=== PATIENT | female | born 1960 | race Caucasian/White ===

== ENCOUNTER → 2017-04-10 | Outpatient (CLI) | payer BC ==
[~2017-04-10] MED LIST: BLAC40CA2 PO; CALCTAB5 PO; MULT-506 PO; OMEG10007 PO
== END | disposition home or self-care (01) ==
LOC: C.LABPVFM 08:19
PROVIDERS: ATTEND Nurse Practitioner
DX: N39.0 Urinary tract infection, site not specified (principal)

== ENCOUNTER 2024-05-07 04:16 | Observation (INO) ==
--- NOTE | 2024-05-07 04:34 | Emergency Department Note ---
Impression & Plan Kidney stone ADMIT ED Provider Note HPI: History obtained from patient. The patient is a 63-year-old female who presents the emergency department the chief complaint of right flank pain. Patient states that she awoke with this pain at approximately 1 AM (3.5 hours prior to arrival). Patient states she has had multiple episodes of vomiting. Patient states that this pain does feel similar to pain that she has had in the past associated with kidney stones. On arrival here to the ED the patient is hypertensive but otherwise hemodynamically stable, she is saturating well on room air on arrival. Patient denies any chest pain or shortness of breath. ROS: - Per HPI Differential Diagnosis: Kidney stone, pyelonephritis, urinary tract infection, acute cholecystitis, choledocholithiasis, small bowel obstruction, viral gastroenteritis, amongst other potential pathologies. *Outpatient medications and allergy history reviewed. PE: General: Alert HEENT: Normocephalic, trachea midline Eyes: Extraocular eye movement is intact, no scleral erythema Pulmonary: Clear to auscultation bilaterally, no wheezing Cardio: Regular rate and rhythm GI: Abdomen is soft to palpation, there is no guarding or rigidity : No suprapubic tenderness, there is moderate right flank tenderness to palpation MSK: No evidence of trauma or malformation of the extremities, no edema Skin: No evidence of rash Neuro: Alert, no focal deficits Psychiatric: Cooperative INDEPENDENT INTERPRETATIONS: cafeteria monitor: (As interpreted by myself): - An order was placed for continuous cardiac monitoring - Patient was noted to be in sinus rhythm with rate of 85 Interventions provided in ED: -IV morphine, IV Zofran, IV Toradol, IV fluid bolus, IV ciprofloxacin Medical Decision Making: IV was established and lab work obtained, patient was placed on court recording monitor. Lab work shows no leukocytosis, hemoglobin is normal, platelet count is normal, CMP does not show any evidence of any critical findings. No evidence of acute kidney injury. Urinalysis is concerning for possible infection, 2+ leukocyte Estrace with significant pyuria and 2+ bacteria. Will send for culture. Given the patient's antibiotic allergy profile she will be treated with IV ciprofloxacin. CT imaging of the abdomen pelvis was obtained that shows an obstructing kidney stone at the right UPJ measuring 9 mm in diameter. Soft tissue mass also possible on CT imaging of which the patient has a known history. I discussed these findings with the patient, urology was consulted and the patient was evaluated at the bedside by Keven Edwards PA-C. At this time admission is recommended and the patient will be evaluated by the urology service for possible stent placement. [facility] [place] was consulted for admission and the patient was placed for admission in stable condition. Prior to admission patient states that her pain is improved following the above interventions. Consultants/Discussions held with other healthcare providers: -Urology service, Keven Edwards PA-C/Dr. Chairez -Hospitalist, Disposition discussion held by myself with: -Patient and patient's spouse at the bedside Diagnosis: 1. Kidney stone, acute, right-sided, with hydronephrosis 2. Urinary tract infection, acute Disposition: Admission Mack Thompson DO Emergency Medicine Past Med/Surg History Problem List (Updated 05/07/24 @ 06:50 by Mack Thompson DO) Kidney stone (Acute) Right shoulder strain Plantar fasciitis IPMN (intraductal papillary mucinous neoplasm) Obesity (BMI 30.0-34.9) Renal lesion Calculus of ureterovesical junction (UVJ) Obesity Right foot pain Pre-diabetes Hypertension Bilateral nephrolithiasis Medical History Nausea and vomiting after administration of anesthetic agent Calculus of kidney and ureter Herniated disc LUMBAR AREA -- REMAINS WITH OCAS BACK PAIN GERD (gastroesophageal reflux disease) Hypertension NO MEDS AND BEING MONITORED Kidney stones HX OF STONES Gallbladder polyp Surgical History History of lithotripsy Laser Litho History of colonoscopy Ganglion cyst RT FOOT REMOVED History of carpal tunnel release LEFT/RT History of dilatation and curettage History of cystoscopy STONE REMOVAL History of tooth extraction Family History Mother Diabetes Nephrolithiasis Son Nephrolithiasis Other Gallbladder disease Social History Smoking Status: Never smoker Second Hand Exposure: No; Do You Dip or Chew Tobacco: No; Hx Alcohol Use: No Hx Substance Use: No Preferred Language: Malay Communication Ability: Effective Cone Machine Operator Required: No Beliefs That Will Affect Care: None marital status: Current Living Situation: Spouse current occupational status: employed current occupation: food service lead How many Children do You have: 1 Feels Safe at Home: Yes Childhood Exposure to Second-Hand Smoke: Yes Diet: regular caffeine: Yes Dental Care, Regularly: No Physical Activity Frequency: Daily Seatbelt Use: always Sunscreen Use: No Assistive Devices: Contacts and Glasses Allergies Allergies Allergy/AdvReac Type Severity Reaction Status Date / Time amoxicillin Allergy Intermediate HIVES AND Verified 04/14/24 15:25 FACIAL SWELLING topiramate [From Topamax] AdvReac Verified 04/14/24 15:25 metformin AdvReac Dizziness Uncoded 04/14/24 15:25 Home Meds Home Medications Medication Instructions Recorded Confirmed calcium carbonate (Calcium 500) 500 mg PO QAM 11/05/18 04/14/24 multivitamin 1 tab PO QAM 11/05/18 04/14/24 omega 3-ovq-cha-fish oil 1,000 mg 1 cap PO QAM 11/05/18 04/14/24 (120 mg-180 mg) capsule (Fish Oil) Previous Rx's Medication Instructions Recorded omeprazole 20 mg tablet,delayed 20 mg PO QAM #90 tabs 09/24/23 release amlodipine 10 mg tablet 10 mg PO DAILY #90 tabs 01/02/24 losartan 50 mg tablet 50 mg PO DAILY #90 tabs 01/02/24 Results & Data (ED) Vital Signs Vital Signs - 24 hr 05/07/24 04:21 05/07/24 05:58 05/07/24 06:05 Temperature 36.9 C Temperature Source Temporal Artery Scan Pulse Rate 90 80 Pulse Rate [Apical] 78 Pulse Rhythm Regular Pulse Rhythm [Apical] Regular Pulse Strength [Apical] Normal Respiratory Rate 20 18 14 Respiratory Effort / Characteristics Non-Labored Spontaneous Respiratory Depth Normal Respiratory Pattern Regular Blood Pressure 188/88 H Blood Pressure [Right Arm] 150/85 H Blood Pressure Mean 121 Blood Pressure Mean [Right Arm] 106 Pulse Oximetry 94 98 99 Oxygen Delivery Method Room Air Room Air Room Air Sepsis Recent Fever Within 48 Hours No Sepsis New/Unexplained Change in Mental Status No Sepsis Action Taken by Nursing No Action Required Laboratory Data 05/07/24 04:35 05/07/24 04:35 Lab Results 05/07/24 Range/Units 04:35 WBC 9.82 (4.8-10.8) K/ul RBC 5.21 (4.20-5.40) M/uL Hgb 15.6 (12.0-16.0) g/dl Hct 46.4 (37.0-47.0) % MCV 89.1 (80.0-100.0) fL MCH 29.9 (25.0-34.0) pg MCHC 33.6 (32.0-36.0) g/dL RDW Std Deviation 39.5 (36.4-46.3) fL RDW Coeff of Ben 12.1 (11.5-14.5) % Plt Count 329 (130-400) K/uL MPV 9.3 L (9.4-12.4) fL Immature Gran % (Auto) 1.3 % Neut % (Auto) 75.8 % Lymph % (Auto) 17.7 % [place] % (Auto) 4.3 % Eos % (Auto) 0.4 % Baso % (Auto) 0.5 % Neut # (Auto) 7.44 H (1.40-6.50) K/uL Lymph # (Auto) 1.74 (1.20-3.40) K/uL [place] # (Auto) 0.42 (0.11-0.59) K/uL Eos # (Auto) 0.04 (0.00-0.50) K/uL Baso # (Auto) 0.05 (0.00-0.20) K/uL Immature Gran # (Auto) 0.13 (0.01-0.20) K/uL Sodium 137 (136-145) mmol/L Potassium 4.0 (3.5-5.1) mmol/L Chloride 104 (98-107) mmol/L Carbon Dioxide 24 (21-32) mmol/L Anion Gap 9 (3-11) BUN 14 (6-23) mg/dl Creatinine 0.91 (0.6-1.2) mg/dl Est Cr Clr Drug Dosing 63.2 ml/min Est GFR ( Amer) 77.8 ml/min Est GFR (Non-Af Amer) 67.1 ml/min BUN/Creatinine Ratio 15.4 (10-20) Glucose 152 H (70-99(Fasting)) mg/dl Calcium 10.4 H (8.6-10.3) mg/dl Total Bilirubin 0.5 (0.2-1.0) mg/dl AST 22 (13-39) U/L ALT 34 (7-52) U/L Alkaline Phosphatase 138 H (34-104) U/L Total Protein 7.9 (6.0-8.3) gm/dl Albumin 4.8 (3.4-5.0) gm/dl Globulin 3.1 (2.5-4.0) gm/dl Albumin/Globulin Ratio 1.5 (0.9-2) Lipase 28 (11-82) U/L Urine Color Yellow Urine Appearance Cloudy A (Clear) Urine pH 5.5 (4.5-7.5) Ur Specific [place] 1.022 (1.000-1.030) Urine Protein 2+ H (Negative) Urine Glucose (UA) Negative (Negative) Urine Ketones Negative (Negative) Urine Blood 2+ H (Negative) Urine Nitrite Negative (Negative) Urine Bilirubin Negative (Negative) Urine Urobilinogen Negative (Negative) Ur Leukocyte Esterase 2+ H (Negative) Urine WBC (Auto) >50 H (0-5) /hpf Urine RBC (Auto) >20 H (0-2) /hpf U Hyaline Cast (Auto) 0-2 (0-2) /lpf U Epithel Cells (Auto) 3-5 H (0-2) /hpf Urine Bacteria (Auto) 2+ H (None Seen) Administered Medications Discontinued Medications Sodium Chloride (Nss) 1,000 mls @ 999 mls/hr IV .Q1H1M ONE Stop: 05/07/24 05:32 Last Infusion: 05/07/24 05:42 Dose: Infused Documented By: [facility] Admin: 05/07/24 04:39 Dose: 999 mls/hr Documented By: [facility] Ketorolac Tromethamine (Ketorolac Tromethamine 15 Mg/Ml Vial) 15 mg IV NOW ONE Stop: 05/07/24 05:12 Last Admin: 05/07/24 05:27 Dose: 15 mg Documented By: [facility] Morphine Sulfate (Morphine Sulfate 4 Mg/Ml 1 Ml Carp\Vial) 4 mg IV NOW STA Stop: 05/07/24 04:33 Last Admin: 05/07/24 04:39 Dose: 4 mg Documented By: [facility] Ondansetron HCl (Ondansetron Inj 2 Mg/Ml 2 Ml Vial) 4 mg IV NOW STA Stop: 05/07/24 04:33 Last Admin: 05/07/24 04:39 Dose: 4 mg Documented By: [facility] Imaging Data Radiologist's Impression: Abdomen/Pelvis CT 05/07/24 04:32 Exam(s): CT ABDOMEN + PELVIS Without Contrast EXAM: CT Abdomen and Pelvis Without Intravenous Contrast CLINICAL HISTORY: Reason for exam: R flank pain. TECHNIQUE: Axial computed tomography images of the abdomen and pelvis without intravenous contrast. Automated exposure control was utilized for the study. A dose lowering technique was utilized adhering to the principles of ALARA. COMPARISON: No relevant prior studies available. FINDINGS: Lung bases: No consolidation. ABDOMEN: Exam is limited due to lack of contrast material. Liver: The liver is enlarged and of diffuse decreased attenuation. Gallbladder and bile ducts: No calcified stones. No ductal dilation. Pancreas: The visualized portions of the pancreas, on this noncontrast study, are grossly unremarkable. Spleen: No splenomegaly. Adrenals: No mass. Kidneys and ureters: There are small bilateral renal calcifications. There is moderate to right hydronephrosis due to a 9 mm calculus at the UPJ. There is a 2 cm rounded lucency within the right kidney. There is a 1.3 cm soft tissue nodular density in the right kidney.. Stomach and bowel: There is some air and fluid within the stomach. There is air and stool noted in the colon. There are diverticula present on the colon. No significant inflammatory changes are noted.. PELVIS: Appendix: Unremarkable CT scan appearance noted the appendix.. Bladder: No calculi are noted within the bladder.. Reproductive: Unremarkable as visualized. ABDOMEN and PELVIS: Intraperitoneal space: No free air. No significant fluid collection. Bones/joints: There are some degenerative changes in the spine.. Soft tissues: Unremarkable. Vasculature: No abdominal aortic aneurysm. Lymph nodes: No enlarged lymph nodes. IMPRESSION: There are small bilateral renal calcifications. There is moderate to right hydronephrosis due to a 9 mm calculus at the UPJ. There is a 2 cm rounded lucency within the right kidney. This may represent a cyst.. There is a 1.3 cm soft tissue nodular density in the right kidney.. This may represent a complex cyst. Cannot exclude a soft tissue mass on this noncontrast study. The liver is enlarged and of diffuse decreased attenuation which may be due to fatty infiltration. Electronically signed by: Yonas Wild MD 05/07/24 06:33 AM Discharge Plan Visit Data Chief Complaint: Kidney Stone Stated Complaint: THINKS SHE IS PASSING A KIDNEY STONE ED Provider: Mack Thompson Discharge Problem: Kidney stone Forms Stand Alone Forms: My [facility] Prescriptions Prescriptions: No Action omeprazole 20 mg tablet,delayed release (DR/EC) 20 mg PO QAM Qty: 90 3RF amlodipine 10 mg tablet 10 mg PO DAILY Qty: 90 3RF losartan 50 mg tablet 50 mg PO DAILY Qty: 90 3RF multivitamin Tablet 1 tab PO QAM calcium carbonate [Calcium 500] 500 mg calcium (1,250 mg) Tablet 500 mg PO QAM omega 6-qiy-sxp-fish oil [Fish Oil] 1,000 mg (120 mg-180 mg) Capsule 1 cap PO QAM Referrals Referrals: Ana Brock CRNP [Primary Care Provider] -
[2024-05-07] MEDS: SODIUM CHLORIDE 0.9% 1,000 ML IV ONE (04:39)
[2024-05-07] MEDS: ONDANSETRON INJ 2 MG/ML 2 ML VIAL IV STA (04:39)
[2024-05-07] MEDS: MoRPHine SULFATE 4 MG/ML 1 ML CARP\\VIAL IV STA (04:39)
[2024-05-07 04:51] LABS: Basophils # (auto) 0.05 K/uL (0.00-0.20); Basophils % (auto) 0.5 %; Eosinophils # (auto) 0.04 K/uL (0.00-0.50); Eosinophils % (auto) 0.4 %; Hematocrit (blood only) 46.4 % (37.0-47.0); Hemoglobin 15.6 g/dl (12.0-16.0); Immature Granulocytes # (auto) 0.13 K/uL (0.01-0.20); Immature Granulocytes % (auto) 1.3 %; Lymphocytes # (auto) 1.74 K/uL (1.20-3.40); Lymphocytes % (auto) 17.7 %; Mean Corpuscular Hemoglobin 29.9 pg (25.0-34.0); Mean Corpuscular Hgb Conc 33.6 g/dL (32.0-36.0); Mean Corpuscular Volume 89.1 fL (80.0-100.0); Mean Platelet Volume 9.3 fL (9.4-12.4); Monocytes # (auto) 0.42 K/uL (0.11-0.59); Monocytes % (auto) 4.3 %; Neutrophils # (auto) 7.44 K/uL (1.40-6.50); Neutrophils % (auto) 75.8 %; Platelet Count 329 K/uL (130-400); RDW Coefficient of Variation 12.1 % (11.5-14.5); RDW Standard Deviation 39.5 fL (36.4-46.3); Red Blood Count 5.21 M/uL (4.20-5.40); White Blood Count 9.82 K/ul (4.8-10.8)
[2024-05-07 04:57] LABS: Appearance Urine Cloudy (Clear); Bacteria Urine Automated 2+ (None Seen); Bilirubin Urine Negative (Negative); Blood Urine 2+ (Negative); Cast Urine Automated 0-2 /lpf (0-2); Color Urine Yellow; Glucose Urine UA Negative (Negative); Ketones Urine Negative (Negative); Leukocyte Esterase Urine 2+ (Negative); Nitrite Urine Negative (Negative); Protein Urine 2+ (Negative); RBC Urine Automated >20 /hpf (0-2); Specific Gravity Urine 1.022 (1.000-1.030); Urobilinogen Urine Negative (Negative); WBC Urine Automated >50 /hpf (0-5); pH Urine 5.5 (4.5-7.5)
[2024-05-07 05:04] LABS: Albumin Globulin Ratio 1.5 (0.9-2); Albumin Level 4.8 gm/dl (3.4-5.0); BUN Creatinine Ratio 15.4 (10-20); Bilirubin,Total 0.5 mg/dl (0.2-1.0); Calcium 10.4 mg/dl (8.6-10.3); Creatinine Clr Calc Pharmacy 63.2 ml/min; Est GFR (African American) 77.8 ml/min; Est GFR (Non-African American) 67.1 ml/min; Globulin 3.1 gm/dl (2.5-4.0); Total Protein 7.9 gm/dl (6.0-8.3)
[2024-05-07] MEDS: KETOROLAC TROMETHAMINE 15 MG/ML VIAL IV ONE (05:27)
--- NOTE | 2024-05-07 06:30 | Urology Consultation ---
Date of Consultation May 07, 2024 Assessment & Plan (1) Kidney stones: I discussed with the treating emergency room physician and he feels that the patient should be admitted to the hospital. He will therefore request the hospitalist admit the patient. From urologic perspective we recommend the foll owing: Provide analgesics provide antiemetics Provide IV fluid for hydration As the patient has suggestive of urinary tract infection would recommend initiating antibiotics. I discussed with the treating emergency admission and he is planning on initiating Cipro Will order Flomax for expulsive therapy Patient has not had anything to eat since last evening. Would recommend keeping her n.p.o. and she will be evaluated by our dayshift team to determine if procedure intervention be required. At the present time the patient is noted to be normotensive without tachycardia or fever. She is nontoxic-appearing. Additional recommendations with forthcoming based on her clinical course as it unfolds History of Present Illness Reason for Consultation: Nephrolithiasis History of Present Illness This is a 63-year-old female with a known history of kidney stones. The patient follows with [facility] physician group urology. Her chart was reviewed and her most recent procedure intervention was on 11/12/2020 where patient had right extracorporeal shockwave lithotripsy. Patient presented to the emergency department [facility] last night she developed some right- sided flank pain with some radiation to her abdomen that began approximate 1:00 AM on 05/07/24. She had associated nausea and vomiting. She had occasional chills but denied any fevers. She did not report any dysuria or hematuria. She does not report any difficulty voiding. Patient had labs and imaging which I independent reviewed. CT scan of the abdomen pelvis shows the patient has moderate right-sided hydronephrosis secondary to a 9 mm kidney stone at the ureteropelvic junction. Patient is also noted to have a 2 cm lucency in the right kidney potentially representing a cyst and a 1.3 cm soft tissue density in the right kidney also potentially representing a cyst with the inability to exclude a mass. .Labs include a CBC with a white blood cell count, hemoglobin, hematocrit, and platelet count were normal. Chemistry profile showed sodium and potassium as well as the BUN and creatinine were normal. Patient's urinalysis showed cloudy urine which was negative for nitrites. She had 2+ leukocyte Estrace and pyuria with greater than 50 white blood cells per high-power field. There is 2+ bacteria on the study At the time of my interview she was resting comfortably in bed she was in no distress. Allergies Allergy/AdvReac Type Severity Reaction Status Date / Time amoxicillin Allergy Intermediate HIVES AND Verified 04/14/24 15:25 FACIAL SWELLING topiramate [From Topamax] AdvReac Verified 04/14/24 15:25 metformin AdvReac Dizziness Uncoded 04/14/24 15:25 Home Medications Medication Instructions Recorded Confirmed Type calcium carbonate (Calcium 500) 500 mg PO QAM 11/05/18 04/14/24 History multivitamin 1 tab PO QAM 11/05/18 04/14/24 History omega 9-sme-vbz-fish oil 1,000 mg 1 cap PO QAM 11/05/18 04/14/24 History (120 mg-180 mg) capsule (Fish Oil) omeprazole 20 mg tablet,delayed 20 mg PO QAM #90 tabs 09/24/23 04/14/24 Rx release amlodipine 10 mg tablet 10 mg PO DAILY #90 tabs 01/02/24 04/14/24 Rx losartan 50 mg tablet 50 mg PO DAILY #90 tabs 01/02/24 04/14/24 Rx Patient History Medical History Nausea and vomiting after administration of anesthetic agent Calculus of kidney and ureter Herniated disc LUMBAR AREA -- REMAINS WITH OCAS BACK PAIN GERD (gastroesophageal reflux disease) Hypertension NO MEDS AND BEING MONITORED Kidney stones HX OF STONES Gallbladder polyp Surgical History History of lithotripsy Laser Litho History of colonoscopy Ganglion cyst RT FOOT REMOVED History of carpal tunnel release LEFT/RT History of dilatation and curettage History of cystoscopy STONE REMOVAL History of tooth extraction Family History Mother Diabetes Nephrolithiasis Son Nephrolithiasis Other Gallbladder disease Social History Smoking Status: Never smoker Second Hand Exposure: No; Do You Dip or Chew Tobacco: No; Hx Alcohol Use: No Hx Substance Use: No Preferred Language: Upper Sorbian Communication Ability: Effective Commodities Trader Required: No Beliefs That Will Affect Care: None marital status: Current Living Situation: Spouse current occupational status: employed 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 How many Children do You have: 1 Feels Safe at Home: Yes Childhood Exposure to Second-Hand Smoke: Yes Diet: regular caffeine: Yes Dental Care, Regularly: No Physical Activity Frequency: Daily Seatbelt Use: always Sunscreen Use: No Assistive Devices: Contacts and Glasses Review of Systems Review of Systems: All systems reviewed & are unremarkable except as noted in HPI & below Physical Exam Constitutional: WD/WN, vitals as above Eyes: no conjunctival abnormality ENMT: Ears: no hearing impairment and no external ear abnormality Mouth: no oropharynx abnormality Neck: trachea midline Respiratory: normal respiratory effort; no respiratory distress and no labored breathing Cardiovascular: Rate/Rhythm: regular rate and regular rhythm Gastrointestinal (Abdomen): Abdomen is soft and nontender. There is no pain with palpation Musculoskeletal: No calf tenderness Skin: no rashes Neurologic: moves all extremities Psychiatric: A+Ox3, euthymic affect Genitourinary: At the time of my exam the patient did not have any CVA tenderness with percussion bilaterally Results & Data Vital Signs (Past 12 Hours) Vital Signs Temp Pulse Pulse Resp BP BP Pulse Ox 05/07/24 06:05 80 14 99 05/07/24 05:58 78 18 150/85 H 98 05/07/24 04:21 36.9 C 90 20 188/88 H 94 O2 Del Method 05/07/24 06:05 Room Air 05/07/24 05:58 Room Air 05/07/24 04:21 Room Air PG Care Time/CCT Total # of Minutes Spent Total Time Spent with Patient: Total time spent is greater than 50% in coordination of care (as documented) at patient's floor/unit and/or counseling patient: Coding Level of Care Code 18805 IN/OBS CONSULT LVL 5,80M Diagnoses Kidney stones N20.0
--- NOTE | 2024-05-07 06:34 | CT Scan Report ---
Exam(s): CT ABDOMEN + PELVIS Without Contrast EXAM: CT Abdomen and Pelvis Without Intravenous Contrast CLINICAL HISTORY: Reason for exam: R flank pain. TECHNIQUE: Axial computed tomography images of the abdomen and pelvis without intravenous contrast. Automated exposure control was utilized for the study. A dose lowering technique was utilized adhering to the principles of ALARA. COMPARISON: No relevant prior studies available. FINDINGS: Lung bases: No consolidation. ABDOMEN: Exam is limited due to lack of contrast material. Liver: The liver is enlarged and of diffuse decreased attenuation. Gallbladder and bile ducts: No calcified stones. No ductal dilation. Pancreas: The visualized portions of the pancreas, on this noncontrast study, are grossly unremarkable. Spleen: No splenomegaly. Adrenals: No mass. Kidneys and ureters: There are small bilateral renal calcifications. There is moderate to right hydronephrosis due to a 9 mm calculus at the UPJ. There is a 2 cm rounded lucency within the right kidney. There is a 1.3 cm soft tissue nodular density in the right kidney.. Stomach and bowel: There is some air and fluid within the stomach. There is air and stool noted in the colon. There are diverticula present on the colon. No significant inflammatory changes are noted.. PELVIS: Appendix: Unremarkable CT scan appearance noted the appendix.. Bladder: No calculi are noted within the bladder.. Reproductive: Unremarkable as visualized. ABDOMEN and PELVIS: Intraperitoneal space: No free air. No significant fluid collection. Bones/joints: There are some degenerative changes in the spine.. Soft tissues: Unremarkable. Vasculature: No abdominal aortic aneurysm. Lymph nodes: No enlarged lymph nodes. IMPRESSION: There are small bilateral renal calcifications. There is moderate to right hydronephrosis due to a 9 mm calculus at the UPJ. There is a 2 cm rounded lucency within the right kidney. This may represent a cyst.. There is a 1.3 cm soft tissue nodular density in the right kidney.. This may represent a complex cyst. Cannot exclude a soft tissue mass on this noncontrast study. The liver is enlarged and of diffuse decreased attenuation which may be due to fatty infiltration. Electronically signed by: Yonas Wild MD 05/07/24 06:33 AM
[2024-05-07] MEDS: CIPROFLOXACIN / D5W 400 MG/200 ML BAG IV STA (07:36)
[2024-05-07] MEDS: TAMSULOSIN HCL 0.4 MG CAP PO ONE (07:36)
--- NOTE | 2024-05-07 08:30 | Anesthesiology Consultation ---
Date of Service May 07, 2024 Assessment & Plan Chart Review Chart Review: Acceptable Risk for Surgery and Patient NOT seen in Pre Admission Testing Consults Requested none ASA ASA2 Proposed Anesthesia Anesthesia Type: General Regional Laterality: Left Risk / Benefits Reviewed With: PT / POA / Parent / Guardian, Accepts Plan and Informed Consent Obtained History Surgery Operation Date: 05/07/24 08:10 Proposed Procedures p Cystoscopy Right Retrograde Pyelogram with Stent Placement - Med Chairez MD Height/Weight Height: 5 ft 2 in Weight: 83 kg Allergies Allergy/AdvReac Type Severity Reaction Status Date / Time amoxicillin Allergy Intermediate HIVES AND Verified 05/07/24 08:20 FACIAL SWELLING topiramate [From Topamax] AdvReac Verified 05/07/24 08:20 metformin AdvReac Dizziness Uncoded 05/07/24 08:20 Medications Home Medications Medication Instructions Recorded Confirmed Last Taken calcium carbonate (Calcium 500) 500 mg PO QAM 11/05/18 05/07/24 05/06/24 multivitamin 1 tab PO QAM 11/05/18 05/07/24 05/06/24 omega 5-yra-gww-fish oil 1,000 mg 1 cap PO QAM 11/05/18 05/07/24 05/06/24 (120 mg-180 mg) capsule (Fish Oil) omeprazole 20 mg tablet,delayed 20 mg PO QAM #90 tabs 09/24/23 05/07/24 05/06/24 release amlodipine 10 mg tablet 10 mg PO QAM 05/07/24 05/07/24 05/06/24 losartan 50 mg tablet 50 mg PO HS 05/07/24 05/07/24 05/06/24 NPO Date Last Intake of Fluids: 05/06/24 Time Last Intake of Fluids: 20:00 Date Last Intake of Solids: 05/06/24 Time Last Intake of Solids: 19:00 Past Medical History Medical History Nausea and vomiting after administration of anesthetic agent Calculus of kidney and ureter Herniated disc LUMBAR AREA -- REMAINS WITH OCAS BACK PAIN GERD (gastroesophageal reflux disease) Hypertension NO MEDS AND BEING MONITORED Kidney stones HX OF STONES Gallbladder polyp Exercise / Class Metabolic Activity II 4-5 Yardwork/Stairs/Walk up hill Past Family History Family History Mother Diabetes Nephrolithiasis Son Nephrolithiasis Other Gallbladder disease Past Surgical History Surgical History History of lithotripsy Laser Litho History of colonoscopy Ganglion cyst RT FOOT REMOVED History of carpal tunnel release LEFT/RT History of dilatation and curettage History of cystoscopy STONE REMOVAL History of tooth extraction Past Anesthesia History No Hx of Anesthesia Complications and No Family Hx of Anesthesia Complications History of PONV No Hx of PONV and No Hx of Motion Sickness Social History Smoking Status: Never smoker Do You Dip or Chew Tobacco: No Hx Alcohol Use: No Alcohol type: hard liquor alcohol intake frequency: holidays/special occasions only Hx Substance Use: No substance use type: does not use Review of Systems ROS Unobtainable: All systems reviewed & are unremarkable except as noted in HPI & below Physical Exam Vital Signs Last Vital Signs Temp 36.9 C 05/07/24 04:21 Pulse 72 05/07/24 07:00 Resp 16 05/07/24 07:00 BP 132/76 05/07/24 07:00 Pulse Ox 95 05/07/24 07:00 O2 Del Method Room Air 05/07/24 07:00 ENMT Mouth: no TMJ abnormality Thyromental Distance: > or= 3.5 Finger Breadths Mallampati Class: II Neck normal visual inspection and trachea midline; neck extension not limited Respiratory normal respiratory effort Auscultation: lungs clear to auscultation bilaterally Cardiovascular Rate/Rhythm: regular rate and regular rhythm Heart Sounds: no murmur Musculoskeletal Spine: normal cervical ROM Extremities: full ROM of extremities Neurologic moves all extremities Psychiatric Orientation: alert and oriented x 3 Testing Laboratory Results 05/07/24 04:35 05/07/24 04:35 Urine Color Yellow 05/07/24 04:35 Urine Appearance Cloudy (Clear) A 05/07/24 04:35 Urine pH 5.5 (4.5-7.5) 05/07/24 04:35 Ur Specific [place] 1.022 (1.000-1.030) 05/07/24 04:35 Urine Protein 2+ (Negative) H 05/07/24 04:35 Urine Glucose (UA) Negative (Negative) 05/07/24 04:35 Urine Ketones Negative (Negative) 05/07/24 04:35 Urine Nitrite Negative (Negative) 05/07/24 04:35 Ur Leukocyte Esterase 2+ (Negative) H 05/07/24 04:35 Urine WBC (Auto) >50 /hpf (0-5) H 05/07/24 04:35 Urine RBC (Auto) >20 /hpf (0-2) H 05/07/24 04:35 U Hyaline Cast (Auto) 0-2 /lpf (0-2) 05/07/24 04:35 U Epithel Cells (Auto) 3-5 /hpf (0-2) H 05/07/24 04:35 Urine Bacteria (Auto) 2+ (None Seen) H 05/07/24 04:35 Electrocardiogram Date: 11/08/22 Findings: + NSR @
[2024-05-07] MEDS ORDERED: MIDAZOLAM HCL 1 MG/ML 2ML VIAL ONE (08:31)
[2024-05-07] MEDS ORDERED: fentaNYL citrate PF 100 MCG/2 ML VIAL IV PRN (08:31)
[2024-05-07] MEDS ORDERED: ONDANSETRON INJ 2 MG/ML 2 ML VIAL IV PRN ×2 (08:31→11:11)
[2024-05-07] MEDS ORDERED: ePHEDrine sulfate 50 MG/ML AMP IV PRN (08:31)
[2024-05-07] MEDS ORDERED: ATROPINE SULFATE 0.1 MG/ML 10ML SYR IV PRN (08:31)
[2024-05-07] MEDS ORDERED: fentaNYL citrate PF 100 MCG/2 ML VIAL ONE (08:39)
[2024-05-07] MEDS ORDERED: LIDOCAINE 2% 2 ML VIAL/AMP(20MG/ML) INFIL ONE (08:40)
[2024-05-07] MEDS ORDERED: PROPOFOL IV EMULSION 10 MG/ML 20 ML VIAL IV ONE (08:40)
[2024-05-07] MEDS ORDERED: ONDANSETRON INJ 2 MG/ML 2 ML VIAL ONE (08:40)
--- NOTE | 2024-05-07 09:33 | Operative Report ---
PG Post Operative Report Pre & Post Diagnosis Right urolithiasis, urinary tract infection Operation Date: 05/07/24 08:10 <No data on this case meets the specified criteria> Right urolithiasis, urinary tract infection I identified the patient and participated in the time-out.: Yes Procedure Cystoscopy, right retrograde pyelogram with radiographic interpretation, right ureteral stent placement Operation Date: 05/07/24 08:10 <No data on this case meets the specified criteria> Surgeon Med Chairez MD Construction Crew Member None Estimated Blood Loss 0 Findings See Below Moderate right hydronephrosis. Stent in appropriate position. Specimens None Drains 6 Chinese by 24 cm right ureteral stent Anesthesia Type MAC Complications none Indications 63-year-old female with a right ureteral calculus and concern for UTI Description of Procedure After informed consent was obtained, the patient was transported operative suite. MAC anesthesia was induced. The patient was placed in dorsolithotomy position prepped and draped in a sterile fashion. They received preoperative ciprofloxacin for antibiotic prophylaxis. An appropriate surgical timeout was performed. A 22 Chinese rigid scope was inserted per urethra into the bladder. [place] cystoscopy revealed no stones or lesions. I turned my attention the right ureteral orifice and intubated this with a 5 Chinese open-ended catheter. A right retrograde pyelogram was shot which showed moderate hydronephrosis. A sensor wire was advanced into the kidney and confirmed fluoroscopically. A 6 Chinese by 24 cm right ureteral stent was deployed with a good proximal coil in the renal pelvis and a good distal coil noted in the bladder, confirmed fluoroscopically and under direct visualization, respectively. The bladder was emptied and the scope was removed. This concluded the end of the case. All counts were correct at the end of the case. I was present, scrubbed, and actively participated for the entirety of the procedure. I attest to the content of the Intraoperative Record and any orders documented therein. Any exceptions are noted below.
[2024-05-07] MEDS ORDERED: DIATRIZOATE MEGLUMINE 30% 100ML VIAL INSTIL PRN (09:34)
--- NOTE | 2024-05-07 10:32 | Anesthesiology Progress Note ---
Date of Service May 07, 2024 Anesthesia Post Procedure Vital Signs Vital Signs: Temp Pulse Pulse Pulse Resp BP BP 05/07/24 10:20 36.6 C 71 17 115/63 05/07/24 10:10 74 15 121/67 05/07/24 10:00 79 18 120/68 05/07/24 09:50 71 14 111/72 05/07/24 09:45 83 20 119/69 05/07/24 09:39 37.1 C 74 16 126/61 05/07/24 08:51 36.8 C 82 20 05/07/24 08:43 75 20 130/70 05/07/24 07:00 72 16 132/76 05/07/24 06:05 80 14 05/07/24 05:58 78 18 150/85 H 05/07/24 04:21 36.9 C 90 20 188/88 H Pulse Ox O2 Del Method 05/07/24 10:20 93 Room Air 05/07/24 10:10 90 Room Air 05/07/24 10:00 95 Room Air 05/07/24 09:50 95 Room Air 05/07/24 09:45 93 Room Air 05/07/24 09:39 93 Room Air 05/07/24 08:51 94 Room Air 05/07/24 08:43 96 Room Air 05/07/24 07:00 95 Room Air 05/07/24 06:05 99 Room Air 05/07/24 05:58 98 Room Air 05/07/24 04:21 94 Room Air Transfer of Care Handoff Completed per policy Notes Mental Status: alert / awake / arousable Patient Amnestic to Procedure: Yes Nausea / Vomiting: adequately controlled Pain: adequately controlled Airway Patency, RR, SpO2: stable & adequate BP & HR: stable & adequate Hydration State: stable & adequate Anesthetic Complications: no major complications apparent and Pt Satisfied with anesthetic care
[2024-05-07] MEDS ORDERED: POLYETHYLENE (MIRALAX) 17 GM PACK PO PRN (11:11)
[2024-05-07] MEDS ORDERED: MELATONIN 3 MG TAB PO PRN (11:11)
[2024-05-07] MEDS ORDERED: ALUMINUM/MAGNESIUM SUSP 30 ML UDC PO PRN (11:11)
[2024-05-07] MEDS ORDERED: MAGNESIUM HYDROXIDE SUSP 30 ML UDC PO PRN (11:11)
[2024-05-07] MEDS ORDERED: KETOROLAC TROMETHAMINE 15 MG/ML VIAL IV PRN (11:16)
[2024-05-07] MEDS ORDERED: PROCHLORPERAZINE 5 MG in SYRINGE 4 ML IV PRN (11:22)
--- NOTE | 2024-05-07 11:40 | History & Physical Report ---
Date of Service May 07, 2024 Assessment & Plan (1) Kidney stone: Plan: Obstructing R sided nephrolithiasis with moderate hydronephrosis History of nephrolithiasis -R ureteral stent 05/[address] Chairez -IV fluids -pain/nausea control - scheduled APAP, PRN toradol x 4 doses max, flomax -AM BMP -stop calcium supp -follow up with urologist for stent/stone and renal cysts seen on CT imaging possible UTI -continue cipro but can be oral -follow up urine cultures (2) Hypertension: Plan: normotensive this afternoon hold ARB for now, resume amlodipine (3) Hepatic steatosis: Plan: based on admitting CT Obesity with BMI 33.5, metabolic syndrome with prediabetes hypertension and Hepatic steatosis on CT - counseled briefly on diet and lifestyle interventions, follow-up with primary care Plan potentially could discharge home later today if no significant symptoms from stone/stent and eating and drinking well DVT ppx - SCDs Start chemoppx if staying more than overnight Admission and Anticipated Discharge Date Admission Date: May 07, 2024 History of Present Illness Chief Complaint: Right flank pain and vomiting since 1 am Primary Care Provider: JOSE Leung 63 y/o woman with a history of nephrolithiasis she was in her usual state of health until starting today at 1 am she had severe right flank pain and vomiting. Came to ED. symptoms were exactly like her previous kidney stones for which she has required stenting and lithotripsy in the past. Right flank pain was severe and radiating towards her right groin, symptoms improved with antiemetics and Toradol given in the ED. CT abdomen showed right UPJ 9 mm stone with hydronephrosis. UA abnormal consistent with infection and stone. Treated with pain, nausea medication, toradol, IV cipro (has hives/facial swelling with amoxicillin). Urology consulted while in ED and she went to OR this morning for right ureteral stent placement by Dr. Chairez which was successful. I saw her postoperatively and she is feeling much much better, she is eating lunch without difficulty no further nausea and actually does not have any further right flank pain at this time. She has not had any dysuria leading up to her symptoms starting last night, no other antecedent UTI symptoms such as fevers abdominal pain or burning with urination. she has known renal cysts which have been followed with serial ultrasounds as an outpatient. Allergies Allergy/AdvReac Type Severity Reaction Status Date / Time amoxicillin Allergy Intermediate HIVES AND Verified 05/07/24 08:20 FACIAL SWELLING topiramate [From Topamax] AdvReac Verified 05/07/24 08:20 metformin AdvReac Dizziness Uncoded 05/07/24 08:20 Home Medications Medication Instructions Recorded Confirmed Type calcium carbonate (Calcium 500) 500 mg PO QAM 11/05/18 05/07/24 History multivitamin 1 tab PO QAM 11/05/18 05/07/24 History omega 4-bcd-frv-fish oil 1,000 mg 1 cap PO QAM 11/05/18 05/07/24 History (120 mg-180 mg) capsule (Fish Oil) omeprazole 20 mg tablet,delayed 20 mg PO QAM #90 tabs 09/24/23 05/07/24 Rx release amlodipine 10 mg tablet 10 mg PO QAM 05/07/24 05/07/24 History losartan 50 mg tablet 50 mg PO HS 05/07/24 05/07/24 History Past Med/Surg History Problem List (Updated 05/07/24 @ 15:39 by Noreen Montgomery MD) Hepatic steatosis Kidney stone (Acute) Right shoulder strain Plantar fasciitis IPMN (intraductal papillary mucinous neoplasm) Obesity (BMI 30.0-34.9) Renal lesion Calculus of ureterovesical junction (UVJ) Obesity Right foot pain Pre-diabetes Hypertension Bilateral nephrolithiasis Medical History Nausea and vomiting after administration of anesthetic agent Calculus of kidney and ureter Herniated disc LUMBAR AREA -- REMAINS WITH OCAS BACK PAIN GERD (gastroesophageal reflux disease) Hypertension NO MEDS AND BEING MONITORED Kidney stones HX OF STONES Gallbladder polyp Surgical History History of lithotripsy Laser Litho History of colonoscopy Ganglion cyst RT FOOT REMOVED History of carpal tunnel release LEFT/RT History of dilatation and curettage History of cystoscopy STONE REMOVAL History of tooth extraction Family History Mother Diabetes Nephrolithiasis Son Nephrolithiasis Other Gallbladder disease Social History Smoking Status: Never smoker Second Hand Exposure: No; Do You Dip or Chew Tobacco: No; Hx Alcohol Use: Yes Alcohol type: hard liquor Hx Substance Use: No Preferred Language: Chilean Communication Ability: Effective Senior Materials Planner Required: No Beliefs That Will Affect Care: None marital status: Current Living Situation: Spouse current occupational status: employed current occupation: it service delivery manager How many Children do You have: 1 Feels Safe at Home: Yes Childhood Exposure to Second-Hand Smoke: Yes Diet: regular caffeine: Yes Dental Care, Regularly: No Physical Activity Frequency: Daily Seatbelt Use: always Sunscreen Use: No Assistive Devices: Glasses Review of Systems 2 Review of Systems: All systems reviewed & are unremarkable except as noted in HPI & below Physical Exam 2 Physical Exam: PHYSICAL EXAMINATION Last 24h vital signs reviewed, see documentation in flowsheet General: comfortable appearing, no distress HEENT: Normocephalic, atraumatic, pupils round and equal, sclerae anicteric, no conjunctival injection, moist mucus membranes Lungs: Normal respiratory effort. Clear to auscultation bilaterally. No RRW Heart: Regular rate and rhythm, no murmurs. No JVD Abdomen: Soft, nontender, nondistended. Bowel sounds present. no right flank/CVA tenderness Extremities: Warm, dry, well-perfused. No extremity edema. Neuro: Alert and oriented x 4, face symmetric, moves 4 extremities well Psych: Normal affect and behavior Results & Data Results & Data Vital Signs (Past 12 Hours) Vital Signs Temp Pulse Pulse Pulse Resp BP BP 05/07/24 11:09 36.6 C 71 18 128/75 05/07/24 10:45 36.6 C 70 18 130/77 05/07/24 10:20 36.6 C 71 17 115/63 05/07/24 10:10 74 15 121/67 05/07/24 10:00 79 18 120/68 05/07/24 09:50 71 14 111/72 05/07/24 09:45 83 20 119/69 05/07/24 09:39 37.1 C 74 16 126/61 05/07/24 08:51 36.8 C 82 20 05/07/24 08:43 75 20 130/70 05/07/24 07:00 72 16 132/76 05/07/24 06:05 80 14 05/07/24 05:58 78 18 150/85 H 05/07/24 04:21 36.9 C 90 20 188/88 H Pulse Ox O2 Del Method 05/07/24 11:09 92 Room Air 05/07/24 10:45 93 Room Air 05/07/24 10:20 93 Room Air 05/07/24 10:10 90 Room Air 05/07/24 10:00 95 Room Air 05/07/24 09:50 95 Room Air 05/07/24 09:45 93 Room Air 05/07/24 09:39 93 Room Air 05/07/24 08:51 94 Room Air 05/07/24 08:43 96 Room Air 05/07/24 07:00 95 Room Air 05/07/24 06:05 99 Room Air 05/07/24 05:58 98 Room Air 05/07/24 04:21 94 Room Air Laboratory Results 05/07/24 04:35 05/07/24 04:35 UA reviewed - +WBC, +bacteria etc Diagnostic Findings Abdomen/Pelvis CT 05/07/24 04:32 Exam(s): CT ABDOMEN + PELVIS Without Contrast EXAM: CT Abdomen and Pelvis Without Intravenous Contrast CLINICAL HISTORY: Reason for exam: R flank pain. TECHNIQUE: Axial computed tomography images of the abdomen and pelvis without intravenous contrast. Automated exposure control was utilized for the study. A dose lowering technique was utilized adhering to the principles of ALARA. COMPARISON: No relevant prior studies available. FINDINGS: Lung bases: No consolidation. ABDOMEN: Exam is limited due to lack of contrast material. Liver: The liver is enlarged and of diffuse decreased attenuation. Gallbladder and bile ducts: No calcified stones. No ductal dilation. Pancreas: The visualized portions of the pancreas, on this noncontrast study, are grossly unremarkable. Spleen: No splenomegaly. Adrenals: No mass. Kidneys and ureters: There are small bilateral renal calcifications. There is moderate to right hydronephrosis due to a 9 mm calculus at the UPJ. There is a 2 cm rounded lucency within the right kidney. There is a 1.3 cm soft tissue nodular density in the right kidney.. Stomach and bowel: There is some air and fluid within the stomach. There is air and stool noted in the colon. There are diverticula present on the colon. No significant inflammatory changes are noted.. PELVIS: Appendix: Unremarkable CT scan appearance noted the appendix.. Bladder: No calculi are noted within the bladder.. Reproductive: Unremarkable as visualized. ABDOMEN and PELVIS: Intraperitoneal space: No free air. No significant fluid collection. Bones/joints: There are some degenerative changes in the spine.. Soft tissues: Unremarkable. Vasculature: No abdominal aortic aneurysm. Lymph nodes: No enlarged lymph nodes. IMPRESSION: There are small bilateral renal calcifications. There is moderate to right hydronephrosis due to a 9 mm calculus at the UPJ. There is a 2 cm rounded lucency within the right kidney. This may represent a cyst.. There is a 1.3 cm soft tissue nodular density in the right kidney.. This may represent a complex cyst. Cannot exclude a soft tissue mass on this noncontrast study. The liver is enlarged and of diffuse decreased attenuation which may be due to fatty infiltration. Electronically signed by: Yonas Wild MD 05/07/24 06:33 AM Code Status & VTE Plan VTE Prophylaxis Plan VTE Prophylaxis will be ordered: Yes Reason for no VTE drug order: Treatment not indicated PG Care Time/CCT Total # of Minutes Spent Total Time Spent with Patient: Total time spent is greater than 50% in coordination of care (as documented) at patient's floor/unit and/or counseling patient: Coding Level of Care Code 01521 INT INP/OBS CARE 2/55MIN Diagnoses Kidney stone N20.0 Primary hypertension I10 Hypertension type: primary hypertension Hepatic steatosis K76.0 (2) Hypertension Hypertension type: primary hypertension Qualified Code(s): I10 - Essential (primary) hypertension
[2024-05-07] MEDS: TAMSULOSIN HCL 0.4 MG CAP PO SCH (12:49)
[2024-05-07] MEDS: ACETAMINOPHEN 325 MG TAB PO SCH (12:49)
[2024-05-07 13:57] VITALS: BP 135/77; PULSE 86; RESP 16; TEMP 98.4; O2SAT 92
--- NOTE | 2024-05-07 14:25 | Fluoroscopy Report ---
INTRAOPERATIVE RADIOGRAPHS CLINICAL HISTORY: Right ureteral stent placement. Fluoro time: 8 seconds Ka,r: 1.87 mGy FINDINGS: 4 spot fluoroscopic views of the right abdomen are correlated with abdominal CT dated 2023. Contrast injected into the right renal collecting system shows moderate to severe hydronephrosi s. The third image shows a wire and a right renal pelvis, and the final image shows the proximal end of a right ureteral stent in appropriate position. IMPRESSION: Intraoperative images from a right ureteral stent placement procedure as above. Electronically signed by: Pop Pace M.D. 05/07/2024 2:24 PM
[2024-05-07] MEDS: INFLUENZA VACC TS2024-25(6m+)/PF (IIV3) 0.5mL Syr IM ONE (16:44)
--- NOTE | 2024-05-07 17:04 | Discharge Summary ---
Discharge Summary Date of Service May 07, 2024 Principal Dx & Hospital Course #1 = Principal Diagnosis (1) Kidney stone: Obstructing R sided nephrolithiasis with moderate hydronephrosis History of nephrolithiasis -R ureteral stent 05/[address] Chairez - she tolerated the procedure very well and had no residual pain or nausea following stent placement. She was able to return home later the same day - and continue acetaminophen and cautious amount of NSAIDs for pain/ dysuria -stop calcium supplement until discussion with urologist regarding stone prevention -follow up with urologist for stent/stone and renal cysts seen on CT imaging possible UTI -continue cipro ( has amoxicillin allergy with facial swelling and hives) -follow up urine cultures, blood culture done in ED (2) Hypertension: resume amlodipine and ARB (3) Hepatic steatosis: based on admitting CT Obesity with BMI 33.5, metabolic syndrome with prediabetes hypertension and Hepatic steatosis on CT - counseled briefly on diet and lifestyle interventions, follow-up with primary care Notes For Next Care Provider hepatic steatosis noted on admitting CT abdomen pelvis, likely MAFLD continue follow up of known renal cysts Medication Changes From Visit hold calcium supplement cipro x 10d, flomax, PRN apap and nsaid Admission HPI Per Admitting Provider 63 y/o woman with a history of nephrolithiasis she was in her usual state of health until starting today at 1 am she had severe right flank pain and vomiting. Came to ED. symptoms were exactly like her previous kidney stones for which she has required stenting and lithotripsy in the past. Right flank pain was severe and radiating towards her right groin, symptoms improved with antiemetics and Toradol given in the ED. CT abdomen showed right UPJ 9 mm stone with hydronephrosis. UA abnormal consistent with infection and stone. Treated with pain, nausea medication, toradol, IV cipro (has hives/facial swelling with amoxicillin). Urology consulted while in ED and she went to OR this morning for right ureteral stent placement by Dr. Chairez which was successful. I saw her postoperatively and she is feeling much much better, she is eating lunch without difficulty no further nausea and actually does not have any further right flank pain at this time. She has not had any dysuria leading up to her symptoms starting last night, no other antecedent UTI symptoms such as fevers abdominal pain or burning with urination. she has known renal cysts which have been followed with serial ultrasounds as an outpatient. Discharge Exam PHYSICAL EXAMINATION Last 24h vital signs reviewed, see documentation in flowsheet General: comfortable appearing, no distress HEENT: Normocephalic, atraumatic, pupils round and equal, sclerae anicteric, no conjunctival injection, moist mucus membranes Lungs: Normal respiratory effort. Clear to auscultation bilaterally. No RRW Heart: Regular rate and rhythm, no murmurs. No JVD Abdomen: Soft, nontender, nondistended. Bowel sounds present. no right flank/CVA tenderness Extremities: Warm, dry, well-perfused. No extremity edema. Neuro: Alert and oriented x 4, face symmetric, moves 4 extremities well Psych: Normal affect and behavior Discharge Plan Discharge Items Patient Disposition: Home - Self-Care Reason For Visit: NEPHROLITHIASIS Discharge Diagnosis: nephrolithiasis Activity: Resume your previous activity Non-emergency contact: Primary Care Provider and Urologist Call non-emergency contact if: you have any medication questions, your symptoms worsen and you have a fever Follow-up/Referrals: Ana Brock CRNP [Primary Care Provider] - Med Chairez MD [Physician] - Diet: Heart Healthy Addtl Attending Provider Instructions: You were treated for obstructing right sided kidney stone Ureteral stent was placed Follow up with Dr. Chairez for stent exchange and stone treatment You can take acetaminophen for stent or stone pain You can also take limited amount of NSAID (naproxen/aleve or motrin/ibuprofen) for 1-2 weeks more significant pain - its farias to limit the dose/duration because of risk of some side effects like kidney injury and gastritis/stomach ulcer I prescribed -flomax (tamsulosin) to relax the ureter -ciprofloxacin in case there is UTI, urine cultures are pending Here are some general measures to reduce kidney stone formation: -increase fluid intake, especially water. Avoid sugar sweetened drinks -reduce the salt (sodium) in your diet, ideally <2300 mg per day -eat more fruits and vegetables -weight loss -hold off on your calcium supplement until you talk to Dr. Chairez about it - calcium supplement can encourage certain types of stones -other interventions may be appropriate depending on stone analysis increased exercise, healthy diet, and weight loss can also reverse metabolic problems like pre-diabetes and fatty liver it was a pleasure taking care of you in the hospital, Noreen Montgomery MD Pending Studies at Discharge: Yes (blood and urine cultures) Stand-Alone Forms: My [facility] [place], Smoking Cessation Medications and DC Order Prescriptions: New ciprofloxacin HCl 500 mg Tablet 500 mg PO BID Qty: 18 0RF tamsulosin 0.4 mg Capsule 0.4 mg PO QAM Qty: 14 0RF acetaminophen 325 mg Tablet 650 mg PO Q6H Qty: 0 0RF Rx Instructions: buy over the counter Continued omeprazole 20 mg tablet,delayed release (DR/EC) 20 mg PO QAM Qty: 90 3RF multivitamin Tablet 1 tab PO QAM omega 5-wuo-vpy-fish oil [Fish Oil] 1,000 mg (120 mg-180 mg) Capsule 1 cap PO QAM losartan 50 mg tablet 50 mg PO HS amlodipine 10 mg tablet 10 mg PO QAM Held calcium carbonate [Calcium 500] 500 mg calcium (1,250 mg) Tablet 500 mg PO QAM Hold Instructions: Resume on 05/21/24. discuss [address] Chairez whether to restart calcium supplement Discharge Orders: Discharge Order (Routine); Ordered 05/07/24 Ordered By: Noreen Beach/Other Patient Handouts: Having a Ureteral Stent Admission Data Admit Date/Time: 05/07/24 09:09 Attending Provider: Med Chairez Admit Provider: Noreen Montgomery Primary Care Provider: Ana Brock Other Providers: Med Chairez; Noreen Montgomery Hospital Stay Data Consultations 05/07/24 06:38 Consult Urology Routine 05/07/24 07:07 ED Decision to Admit Stat Procedures Performed Operation Date: 05/07/24 08:10 Actual Procedures p Cystoscopy Right Retrograde Pyelogram with Stent Placement(Right) - Med Chairez MD Diagnostic Imagining Performed 05/07/24 [place] retrograde includes kub Routine 05/07/24 04:32 CT abd pelvis wo con Stat Pending Results Patient Have Any Pending Studies at Discharge: Yes (blood and urine cultures) Discharge Instructions Given to Patient (Per Discharging Provider) You were treated for obstructing right sided kidney stone Ureteral stent was placed Follow up with Dr. Chairez for stent exchange and stone treatment You can take acetaminophen for stent or stone pain You can also take limited amount of NSAID (naproxen/aleve or motrin/ibuprofen) for 1-2 weeks more significant pain - its farias to limit the dose/duration because of risk of some side effects like kidney injury and gastritis/stomach ulcer I prescribed -flomax (tamsulosin) to relax the ureter -ciprofloxacin in case there is UTI, urine cultures are pending Here are some general measures to reduce kidney stone formation: -increase fluid intake, especially water. Avoid sugar sweetened drinks -reduce the salt (sodium) in your diet, ideally <2300 mg per day -eat more fruits and vegetables -weight loss -hold off on your calcium supplement until you talk to Dr. Chairez about it - calcium supplement can encourage certain types of stones -other interventions may be appropriate depending on stone analysis increased exercise, healthy diet, and weight loss can also reverse metabolic problems like pre-diabetes and fatty liver it was a pleasure taking care of you in the hospital, Noreen Montgomery MD Total Time Total Time Spent Total Time Spent (In Minutes): 35 Coding Level of Care Code None Diagnoses Kidney stone N20.0 Primary hypertension I10 Hypertension type: primary hypertension Hepatic steatosis K76.0
[2024-05-07] MEDS ORDERED: CIPROFLOXACIN 500 MG TAB PO SCH (21:00)
[2024-05-08] MEDS ORDERED: amLODIPine BESYLATE 5 MG TAB PO SCH (09:00)
[2024-05-08] MEDS ORDERED: PANTOprazole 40 MG TAB PO SCH (09:00)
== END 2024-05-07 17:35 | disposition home or self-care (01) ==
LOC: ED 04:16 → OR 09:08 → 3N 09:08